=== PATIENT | female | born 2000 | race Asian ===

== ENCOUNTER → 2018-12-28 14:35 | Outpatient (CLI) | payer OTHER, SELFPAY | PROVIDERS: Family Provider Pediatrics; PCP Family Medicine; Visit Provider Physician Assistant ==

== ENCOUNTER → 2018-12-28 15:00 | Outpatient (ROUT) | payer OTHER, SELFPAY ==
[2018-12-28 17:15] LABS: Urine N gonorrhoeae DETECTED
[2018-12-28 17:19] LABS: Urine Chlamydia DETECTED
== END ==
PROVIDERS: Family Provider Pediatrics; PCP Family Medicine; Visit Provider Physician Assistant
DX: R30.0 Dysuria (principal); N89.8 Other specified noninflammatory disorders of vagina
CPT/HCPCS: 87210; 87491; 87591

== ENCOUNTER → 2021-03-09 13:33 | Outpatient (CLI) | payer BC, SELFPAY ==
[2021-03-09 15:28] LABS: Urine N gonorrhoeae NOT DETECTED
[2021-03-09 16:21] LABS: Urine Chlamydia NOT DETECTED
== END ==
PROVIDERS: Family Provider Pediatrics; PCP Family Medicine; Referring Provider Family Medicine; Visit Provider Family Medicine
DX: Z86.19 Personal history of other infectious and parasitic diseases (principal)
CPT/HCPCS: 87491; 87591

== ENCOUNTER → 2024-08-07 10:17 | Outpatient (CLI) | payer OTHER, SELFPAY ==
[2024-08-08 07:40] LABS: Hepatitis B Surf Ab Qualitativ Reactive (.)
== END ==
PROVIDERS: Family Provider Pediatrics; PCP Family Medicine; Referring Provider Family Medicine; Visit Provider Family Medicine
DX: Z02.1 Encounter for pre-employment examination (principal)
CPT/HCPCS: 36415; 86480; 86706